=== PATIENT | male | born 1985 | race Caucasian/White ===

== ENCOUNTER 2017-05-20 23:19 | Emergency (ER) | payer MEDICAID, OTHER ==
[~2017-05-20] VITALS: Ht 180.3 cm; Wt 77.1 kg
[2017-05-20] MEDS ORDERED: cloNIDine HCL 0.1 MG TAB ONE (23:28)
[2017-05-20] MEDS ORDERED: cloNIDine HCL 0.1 MG TAB PO ONE (23:45)
[2017-05-21 03:21] VITALS: BP 140/80
== END 2017-05-21 03:28 | disposition home or self-care (01) ==
LOC: ER 23:19
DX: M54.2 Cervicalgia (principal); R51 Headache
CPT/HCPCS: 72040